=== PATIENT | male | born 1965 | race Caucasian/White ===

== ENCOUNTER 2024-07-29 08:45 | Emergency (ER) | payer OTHER ==
[~2024-07-29] VITALS: Ht 182.9 cm; Wt 158.8 kg
[2024-07-29 09:02] LABS: Calcium, Ionized (POC) 1.08 mmol/L (1.10-1.46); Chloride (POC) 98 mmol/L (98-108); Creatinine (POC) 1.9 mg/dL (0.8-1.3); Glucose (ISTAT POC) 357 mg/dL (70-99); Hemoglobin (POC) 16.7 g/dL (13.5-17.5); Potassium (POC) 5.2 mmol/L (3.5-5.5); Sodium (POC) 137 mmol/L (135-148); Total CO2 (POC) 30 mmol/L (21-32)
[2024-07-29] MEDS ORDERED: EPINEPhrine HCl 0.1 MG/ML 10ML SYR XX ONE (18:56)
[2024-07-29] MEDS ORDERED: Sodium Bicarb 8.4% 50 mEq Syringe IV ONE (18:56)
== END 2024-07-29 10:36 ==
LOC: ER 08:45 → EDBD 08:45 → ER 10:36
DX: I46.9 Cardiac arrest, cause unspecified (principal)
CPT/HCPCS: 31500; 80047; 85014; 92950; 96374; 96375; 99285-25